=== PATIENT | male | born 1995 | race African-American/Black ===

== ENCOUNTER 2020-06-04 | Emergency (ER) | payer SELFPAY ==
[2020-06-04] MEDS ORDERED: KEPPRA1000 MG PO (16:12)
== END 2020-06-04 15:57 | disposition left against medical advice (07) | DRG 101 ==
DX: G40.909 Epilepsy, unspecified, not intractable, without status epilepticus (principal); Z91.19 Patient's noncompliance with other medical treatment and regimen

== ENCOUNTER → 2020-07-31 11:36 | Emergency (ER) | payer SELFPAY ==
[~2020-07-31 11:36] MED LIST: KEPPRA1000 MG PO
== END | disposition left against medical advice (07) | DRG 951 ==
LOC: LWOBS 11:36 → ED 11:36
DX: Z53.21 Procedure and treatment not carried out due to patient leaving prior to being seen by health care provider (principal)